=== PATIENT | male | born 2005 | race Caucasian/White ===

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

== ENCOUNTER 2025-06-27 16:00 | Emergency (ER) | payer OTHER ==
[~2025-06-27] VITALS: Ht 188 cm; Wt 101.8 kg
[~2025-06-27 16:00] MED LIST: KETOROLAC TROME10 MG PO
[2025-06-27 17:23] VITALS: BP 115/78
== END 2025-06-27 17:24 | disposition home or self-care (01) ==
LOC: ED 16:00
DX: R04.0 Epistaxis (principal)
CPT/HCPCS: 71045; 99283-25